=== PATIENT | female | born 1995 | race Caucasian/White ===

== ENCOUNTER 2023-11-19 23:30 | Emergency (ER) | payer OTHER ==
[~2023-11-19] VITALS: Ht 157.5 cm; Wt 68.5 kg
[2023-11-19 23:34] VITALS: BP 118/70; PULSE 69; RESP 18; TEMP 97.8; O2SAT 99
[2023-11-20] MEDS: ACETAMINOPHEN EXTRA STRENGTH 500 MG TAB PO ONE (00:34)
[2023-11-20] MEDS: CYCLOBENZAPRINE 10 MG TAB PO ONE (00:34)
[2023-11-20] MEDS ORDERED: BACTO TP (00:40)
[2023-11-20] MEDS ORDERED: DICL100G32 TP (00:40)
[2023-11-20] MEDS ORDERED: CYCL-711 PO (00:40)
[2023-11-20] MEDS ORDERED: IBUP-2213 PO (00:40)
[2023-11-20 01:22] VITALS: BP 118/70; PULSE 69; RESP 18; TEMP 97.8; O2SAT 99
== END 2023-11-20 01:22 ==
LOC: MED 23:30
DX: S20.219A Contusion of unspecified front wall of thorax, initial encounter (principal); S00.83XA Contusion of other part of head, initial encounter; S40.011A Contusion of right shoulder, initial encounter; Z79.899 Other long term (current) drug therapy; V89.2XXA Person injured in unspecified motor-vehicle accident, traffic, initial encounter; Y93.89 Activity, other specified; Y92.410 Unspecified street and highway as the place of occurrence of the external cause; Y99.8 Other external cause status
CPT/HCPCS: 71045; 73030; 81025; 99284